=== PATIENT | female | born 1965 | race Hispanic/Latino ===

== ENCOUNTER 2017-02-11 14:43 | Outpatient (CLI) | payer OTHER ==
--- NOTE | 2017-02-11 15:36 | XRay Report ---
RIGHT KNEE, 3 views: History: Right knee pain. The bony architecture is intact without evidence of fracture or dislocation. No significant soft tissue abnormality is seen. IMPRESSION: Normal right knee.
== END 2017-02-11 14:44 | disposition home or self-care (01) ==
LOC: SPVIMAG 14:43
PROVIDERS: ATTEND Nurse Practitioner
DX: M25.561 Pain in right knee (principal); J45.909 Unspecified asthma, uncomplicated; F32.9 Major depressive disorder, single episode, unspecified; F41.9 Anxiety disorder, unspecified